=== PATIENT | female | born 1960 | race Caucasian/White ===

== ENCOUNTER 2024-04-17 19:55 | Emergency (ER) | payer BC ==
[~2024-04-17] VITALS: Ht 180.3 cm; Wt 97.3 kg
[~2024-04-17 19:55] MED LIST: ESTR1TAB5; LEVAAER4; OMEPRAZOLE; [UNRECOGNIZED DRUG - OTHER]
[2024-04-17 20:45] VITALS: BP 164/121; PULSE 106
[2024-04-17 20:49] VITALS: RESP 20; O2SAT 92
--- NOTE | 2024-04-17 20:54 | DVH ---
CHEST RADIOGRAPH Indication: cough Technique: Single frontal view of the chest was obtained Comparison: None FINDINGS: Lines and Tubes: None Lungs: No focal consolidation. Pleura: No effusion. No pneumothorax. Cardiomediastinal contours: Unremarkable Bones: No acute osseous abnormality. IMPRESSION: 1. No acute cardiopulmonary disease.
--- NOTE | 2024-04-17 21:08 | ED.PDOC ---
SOB-HPI HPI Comments 63Y F with PMHx HTN, COPD, and asthma presents to ED for chief complaint SOB x3days with cough. Pt was prescribed z-lisa by PCP but states the medication is not working. 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 VALVE MECHANIC History Family History Family History: Unobtainable Social History Smoker: Non-Smoker Alcohol: Occasionally Drugs: Denies Drug Use Lives In: Home Constitutional: denies: chills, diaphoresis, fatigue, fever, malaise, sweats, weakness, others EENTM: denies: blurred vision, double vision, ear bleeding, ear discharge, ear drainage, ear pain, ear ringing, eye pain, eye redness, hearing loss, mouth pain, mouth swelling, nasal discharge, nose bleeding, nose congestion, nose p ain, photophobia, tearing, throat pain, throat swelling, voice changes, others Respiratory: reports: cough, shortness of breath; denies: hemoptysis, orthopnea, SOB at rest, SOB with excertion, stridor, wheezing, others Cardiovascular: denies: chest pain, dizzy spells, diaphoresis, Dyspnea on exert ion, edema, irregular heart beat, left arm pain, lightheadedness, palpitations, PND, syncope, others Gastrointestinal: denies: abdomen distended, abdominal pain, blood streaked bowels, constipated, diarrhea, dysphagia, difficulty swallowing, hematemesis, melena, nausea, poor appetite, poor fluid intake, rectal bleeding, rectal pain, vomiting, others Genitourinary: denies: abnormal vagina bleeding, burning, dyspareunia, dysuria, flank pain, frequency, hematuria, incontinence, pain, , vagina discharge, urgency, others Neurological: denies: dizziness, fainting, headache, left sided numbness, left sided weakness, numbness, paresthesia, pre-existing deficit, right sided numbness, right sided weakness, seizure, speech problems, tingling, tremors, weakness, others Musculoskeletal: denies: back pain, gout, joint pain, joint swelling, muscle pain, muscle stiffness, neck pain, others Integumetry: denies: bruises, change in color, change in hair/nails, dryness, laceration, lesions, lumps, rash, wounds, others Allergic/Immunocompromised: denies: Difficulty Healing, Frequent Infections, Hives, Itching, others Hematologic/Lymphatic: denies: anemia, blood clots, easy bleeding, easy bruising, swollen glands, others Endocrine: denies: excessive hunger, excessive sweating, excessive thirst, excessive urination, flushing, intolerance to cold, intolerance to heat, unexplained weight gain, unexplained weight loss, others Psychiatric: denies: anxiety, bipolar disorder, depression, hopeless, panic disorder, schizophrenia, sleepless, suicidal, others All Other Systems: Reviewed and Negative Physical Exam General Appearance: No Apparent Distress, Normal HEENT: Normal ENT Inspection, Pharynx Normal, TMs Normal Neck: Full Range of Motion, Non-Tender, Normal, Normal Inspection Respiratory: Chest Non-Tender, Lungs Clear, No Accessory Muscle Use, No Respiratory Distress, Normal Breath Sounds Cardiovascular: No Edema, No JVD, No Murmur, No Gallop, Normal Peripheral Pulses, Regular Rate/Rhythm Breast Exam: Deferred Gastrointestinal: No Organomegaly, Non Tender, No Pulsatile Mass, Normal Bowel Sounds, Soft Genitalia: Deferred Pelvic: Deferred Rectal: Deferred Extremities: No calf tenderness, Normal capillary refill, Normal inspection, Normal range of motion, Non-tender, No pedal edema Musculoskeletal : Apperance: Normal Neurologic: Alert, extract operator II-XII nml as Tested, No Motor Deficits, Normal Affect, Normal Mood, No Sensory Deficits Cerebellar Function: Normal Reflexes: Normal Skin: Dry, Normal Color, Warm Lymphatic: No Adenopathy Was a procedure done? Was a procedure done?: No Differential Dx Differential Diagnosis: Anxiety, Asthma, Bronchitis, CHF, COPD, Panic Attack, Pneumonia, Pneumothorax, Respiratory Distress, URI X-Ray, Labs, Meds, VS Vital Signs Date Time Temp Pulse Resp B/P (MAP) Pulse Ox O2 Delivery O2 Flow Rate FiO2 04/17/24 20:49 20 92 Room Air* 0 21 04/17/24 20:45 97.7 106 20 164/121 (135) 92 04/17/24 20:32 100 [facility] [id number] [facility] [address] Ph: [phone] DIAGNOSTIC IMAGING Diagnostic Imaging Report : [id number] Signed PATIENT: OLIVIA MARINO ACCT: [id number] UNIT: [id number] : 1960 LOC: ER ROOM / BED: / AGE / SEX: 63 / F ADM STATUS: REG ER SERVICE 24 ORDERING PHYSICIAN: TUSHAR CARDOSO MD PROCEDURE(s): CXRP - CHEST PORTABLE REASON: cough ORDER NUMBER(s): [id number], ACCESSION NUMBER(s): [id number] CHEST RADIOGRAPH Indication: cough Technique: Single frontal view of the chest was obtained Comparison: None FINDINGS: Lines and Tubes: None Lungs: No focal consolidation. Pleura: No effusion. No pneumothorax. Cardiomediastinal contours: Unremarkable Bones: No acute osseous abnormality. IMPRESSION: 1. No acute cardiopulmonary disease. ATED BY: SKYE DEL ROSARIO Jr., DO DICTATED DATE/TIME: 04/17/242050 SIGNED BY: SKYE DEL ROSARIO Jr., SIGNED DATE/TIME: 04/17/242050 CC: Time of 1ST Reevaluation: 21:00 Reevaluation 1ST: Unchanged Time of 2ND Reevaluation: 22:02 Reevaluation 2ND: Improved Patient Education/Counseling: Diagnosis, Treatment, Prognosis, Need For Follow Up Family Education/Counseling: No Family Present Additional Information - I reviewed the following notes from patient's past medical encounters: [facility] ER 05/21/2013, 06/30/2012 - The following tests were ordered, and results were reviewed by me: EKG, CXR - I reviewed and agreed with the following test results read by other provider: CXR - I discussed treatments and results with medical personnel. pt has copd and is put on zpak empirically by her doctor. she does not have pneumonia, but the zpak which has been started for 2 days will be completed as a course. she is stable for discharge with viral uri Departure 1 Departure Time of Disposition: 22:03 Impression: Primary Impression: Viral URI with cough Disposition: 01 HOME / SELF CARE / HOMELESS Condition: Good Discharged With: Self Critical Care Note Critical Care Time?: No Stability Stability form required: No Heart Score Heart Score: Heart Score Response (Comments) Value History N/A 0 EKG N/A 0 Age N/A 0 Risk Factors N/A 0 Troponin N/A 0 Total 0 I personally scribed for TUSHAR CARDOSO MD ([email or web address]) on 04/17/24 at 21:08. Electronically submitted by Andria Childress ([email or web address]). TUSHAR CARDOSO MD Apr 17, 2024 21:08
--- NOTE | 2024-04-18 05:06 | ECG ---
[facility] Heart Test Date: 2024-04-17 Test Time: 20:32:21 Pat Name: OLIVIA MARINO Department: ER Room: Gender: F [employer]: : [id number] Requested By: TUSHAR CARDOSO Order Number: [id number] Reading MD: Bronson Leal Measurements Intervals [place] Rate: 100 P: 62 CA: 196 QRS: -8 QRSD: 112 T: 21 QT: 351 QTc: 453 Interpretive Statements Sinus tachycardia Incomplete right bundle branch block Abnormal R-wave progression, late transition Electronically Signed On 04-18-2024 14:17:30 PST by Bronson Leal Please click the below link to view image of tracing.
== END 2024-04-18 00:06 | disposition home or self-care (01) ==
LOC: ER 19:55
DX: J06.9 Acute upper respiratory infection, unspecified (principal); B97.89 Other viral agents as the cause of diseases classified elsewhere; I10 Essential (primary) hypertension; J44.89 Other specified chronic obstructive pulmonary disease; J45.909 Unspecified asthma, uncomplicated; Z90.89 Acquired absence of other organs
CPT/HCPCS: 71045; 93005